=== PATIENT | female | born 1975 | race American Indian/Alaskan Native ===

== ENCOUNTER 2020-11-25 16:34 | Emergency (ER) | payer OTHER ==
[~2020-11-25] VITALS: Ht 167.6 cm; Wt 77.1 kg
[2020-11-25 16:36] VITALS: BP 168/117
== END 2020-11-25 18:25 | disposition left against medical advice (07) ==
LOC: ER 16:34
DX: H57.89 Other specified disorders of eye and adnexa (principal); Z53.21 Procedure and treatment not carried out due to patient leaving prior to being seen by health care provider